=== PATIENT | female | born 1995 | race Caucasian/White ===

== ENCOUNTER 2017-10-21 22:18 | Emergency (ER) | payer OTHER ==
--- NOTE | 2017-10-21 22:33 | EDM.PDOC ---
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 She is able to rise out of a seated position she was able to remove her coat on her own without any significant pain behavior she does move slowly and deliberately however is not appeared to be in a great amount of distress. On exam straight leg raise to 90 does not produce any radiculopathy or increased pain however letting her legs down to the bed did increase some discomfort but not to a significant level I can reproduce pain with palpation of her paraspinous muscles right greater than left in the lumbar region she did have some vertebral point tenderness per patient however x-rays are normal No footdrop or saddle anesthesia bowel or urine symptoms There is some language barrier but the patient does understand Frisian and can communicate her [id number]'s present and also serves as an measurer or clarification as needed ] Review of systems: As per history of present illness and below otherwise all systems reviewed and negative. Past medical history: As per history of present illness and as reviewed below otherwise noncontributory. Surgical history: As per history of present illness and as reviewed below otherwise noncontributory. Social history: No reported history of drug or alcohol abuse. Family history: As per history of present illness and as reviewed below otherwise noncontributory. Physical exam: HEENT: Atraumatic, normocephalic, pupils reactive, negative for conjunctival pallor or scleral icterus, mucous membranes moist, throat clear, neck supple, nontender, trachea midline. Lungs: Clear to auscultation, breath sounds equal bilaterally, chest nontender. Heart: S1S2, regular, negative for clicks, rubs, or JVD. Abdomen: Soft, nondistended, nontender. Negative for masses or hepatosplenomegaly. Negative for costovertebral tenderness. Pelvis: Stable nontender. Genitourinary: Deferred. Rectal: Deferred. Extremities: Atraumatic, negative for cords or calf pain. Neurovascular unremarkable. Neuro: Awake, alert, oriented. Cranial nerves II through XII unremarkable. Cerebellum unremarkable. Motor and sensory unremarkable throughout. Exam nonfocal. Diagnostics: []UA HCG Lumbar spine Therapeutics: []Toradol 60 IM Cataflam Flexeril Impression: [Paraspinous muscle spasm lumbar region] Definitive disposition and diagnosis as appropriate pending reevaluation and review of above. lower back pain Pain Score (Numeric/FACES): 10 - Related Data Allergies Allergy/AdvReac Type Severity Reaction Status Date / Time No Known Allergies Allergy Verified 10/21/17 22:27 Home Meds: Home Meds . [No Known Home Meds] 10/21/17 [History] ED ROS GENERAL - Review of Systems Review Of Systems: ROS reveals no pertinent complaints other than HPI. ED EXAM, GENERAL - Physical Exam Exam: See Below Course - Vital Signs Last Recorded V/S: Last Vital Signs Temp 98.3 F 10/21/17 22:28 Pulse 86 10/21/17 22:28 Resp 18 10/21/17 22:28 BP 125/85 10/21/17 22:28 Pulse Ox 98 10/21/17 22:28 - Orders/Labs/Meds Orders: Active Orders 24 hr Category Date Time Status Lumbar Spine 2 or 3V [CR] Stat Exams 10/21/17 22:40 Taken Labs: Laboratory Tests 10/21/17 10/21/17 Range/Units 22:39 22:39 Urine Color YELLOW Urine Appearance HAZY Urine pH 6.0 (5.0-8.0) Ur Specific [place] 1.025 (1.001-1.035) Urine Protein NEGATIVE (NEGATIVE) mg/dL Urine Glucose (UA) NEGATIVE (NEGATIVE) mg/dL Urine Ketones NEGATIVE (NEGATIVE) mg/dL Urine Occult Blood LARGE H (NEGATIVE) Urine Nitrite NEGATIVE (NEGATIVE) Urine Bilirubin NEGATIVE (NEGATIVE) Urine Urobilinogen 0.2 (<2.0) EU/dL Ur Leukocyte Esterase NEGATIVE (NEGATIVE) Urine RBC 0-4 (0-2/HPF) Urine WBC 0-3 (0-5/HPF) Ur Epithelial Cells FEW (NONE-FEW) Urine Bacteria FEW (NEGATIVE) Urine Mucus LIGHT (NONE-MOD) Urine HCG, Qual NEGATIVE (NEGATIVE) Meds: Medications Discontinued Medications Generic Name Dose Route Start Last Admin Trade Name Freq PRN Reason Stop Dose Admin Ketorolac Tromethamine 60 mg 10/21/17 22:53 10/21/17 23:22 Toradol IM 10/21/17 22:54 60 mg ONETIME ONE Administration Departure - Departure Time of Disposition: 23:40 Disposition: Home, Self-Care 01 Condition: Good Clinical Impression: Spasm of lumbar paraspinous muscle - Discharge Information Referrals: PCP,None [Primary Care Provider] - Forms: ED Department Discharge Additional Instructions: Medication as prescribed Return if symptoms persist or worsen Follow-up with primary care in 2 weeks sooner as needed [facility] [address] [place] [id number] The following information is given to patients seen in the emergency department who are being discharged to home. This information is to outline your options for follow-up care. We provide all patients seen in our emergency department with a follow-up referral. The need for follow-up, as well as the timing and circumstances, are variable depending upon the specifics of your emergency department visit. If you don't have a primary care physician on staff, we will provide you with a referral. We always advise you to contact your personal physician following an emergency department visit to inform them of the circumstance of the visit and for follow-up with them and/or the need for any referrals to a consulting specialist. The emergency department will also refer you to a specialist when appropriate. This referral assures that you have the opportunity for follow-up care with a specialist. All of these measure are taken in an effort to provide you with optimal care, which includes your follow-up. Under all circumstances we always encourage you to contact your private physician who remains a resource for coordinating your care. When calling for follow-up care, please make the office aware that this follow-up is from your recent emergency room visit. If for any reason you are refused follow-up, please contact the [facility] emergency department at and asked to speak to the emergency department charge nurse. - My Orders Last 24 Hours: My Active Orders 10/21/17 22:40 Lumbar Spine 2 or 3V [CR] Stat - Assessment/Plan Last 24 Hours: My Active Orders 10/21/17 22:40 Lumbar Spine 2 or 3V [CR] Stat
[2017-10-21] MEDS ORDERED: Ketorolac 60 MG/2 ML SDV IM ONE (22:53)
--- NOTE | 2017-10-25 13:22 | CR ---
EXAM DATE: 10/21/17 PATIENT'S AGE: 22 Patient: AAYUSH HYATT Facility: [place], [place] Site . Site : 1995 Study: XRay Spine Lumbar [id number]/2017 11:24:52 PM Ordering Physician: Leonard Sim Final Report: INDICATION: back pain after lifting heavy object TECHNIQUE: Lumbar spine 3 view COMPARISON: None FINDINGS: Bones: No fractures or significant bone lesions. Joints: Disc spaces and facets are unremarkable. Soft tissues: Unremarkable. IMPRESSION: No acute abnormality of the lumbar spine. Dictated by Jared Tsang MD @ 10/21/2017 11:27:43 PM Dictated by: Jared Tsang MD @ 10/21/2017 23:27:51 (Electronic Signature) Report Signed by Proxy. [facility] HOSPITALWilbur
== END 2017-10-22 00:08 | disposition home or self-care (01) ==
LOC: MW.ED 22:18
DX: M62.830 Muscle spasm of back (principal)
CPT/HCPCS: 72100; 81001; 81025; 96372; 99283; J1885; 99282

== ENCOUNTER 2018-01-09 12:48 | Emergency (ER) | payer SELFPAY ==
--- NOTE | 2018-01-09 13:07 | EDM.PDOC ---
ED HPI GENERAL MEDICAL PROBLEM - General Chief Complaint: Respiratory Problem Stated Complaint: COUGH Time Seen by Provider: 01/09/18 12:51 Source of Information: Reports: Patient History Limitations: Reports: No Limitations - History of Present Illness INITIAL COMMENTS - FREE TEXT/NARRATIVE: HISTORY AND PHYSICAL: History of present illness: Patient is a 22-year-old female who presents to the emergency room with complaints of bilateral ear pain, sore throat, cough and chest congestion 3 days. She states she is coughing so hard that it hurts her chest and throat. Denies any fever, chills, chest pain, shortness of breath, abdominal pain, nausea, vomiting or diarrhea/constipation. States she has been using over-the- counter Tylenol without any relief. Review of systems: As per history of present illness and below otherwise all systems reviewed and negative. Past medical history: As per history of present illness and as reviewed below otherwise noncontributory. Surgical history: As per history of present illness and as reviewed below otherwise noncontributory. Social history: No reported history of drug or alcohol abuse. Family history: As per history of present illness and as reviewed below otherwise noncontributory. Physical exam: General: Well-developed and well-nourished 22-year-old female. Alert and oriented. Nontoxic appearing and in no acute distress. HEENT: Atraumatic, normocephalic, pupils reactive, negative for conjunctival pallor or scleral icterus, mucous membranes moist, pinkish tympanic membranes bilaterally with good light reflex, no bulging. Mild erythema noted to posterior oropharynx without exudate otherwise throat clear, neck supple, nontender, trachea midline. Lungs: Fine inspiratory wheezing to right posterior base otherwise clear, breath sounds equal bilaterally, chest nontender. Heart: S1S2, regular rate and rhythm Abdomen: Soft, nondistended, nontender. Negative for masses or hepatosplenomegaly. Negative for costovertebral tenderness. Pelvis: Stable nontender. Genitourinary: Deferred. Rectal: Deferred. Extremities: Atraumatic, negative for cords or calf pain. Neurovascular unremarkable. Neuro: Awake, alert, oriented. Cranial nerves II through XII unremarkable. Cerebellum unremarkable. Motor and sensory unremarkable throughout. Exam nonfocal. Influenza screening is negative. Chest x-ray shows no pneumonia or infiltrate. We'll treat the ear infection and erythematous throat with Augmentin. Will treat cough with Medrol Dosepak and Phenergan with codeine, 4 ounces no refill. Supportive care measures were reviewed. She voices understanding and is agreeable to plan of care. She denies any questions at this time. Diagnostics: Influenza, chest x-ray Therapeutics: [] Impression: Otitis media, bilateral Bronchitis Plan: 1. Please take the antibiotic as directed. A steroid has been prescribed to help open up your airways. Phenergan with codeine has been given for your cough and pain. The Phenergan with codeine is considered a narcotic and may make you drowsy so do not take it on driving or needing to be functioning outside of the house. Please reserve this medication for nighttime use. You may use Tylenol and /or ibuprofen as needed for daytime use. 2. Warm saltwater gargles 2-3 times per day for the next several days. Please continue toothbrush after antibiotic is completed. 3. Encourage fluids to prevent dehydration. 4. Follow-up with your primary caregiver in the next 1-2 days. Return to the ED as needed and as discussed. Definitive disposition and diagnosis as appropriate pending reevaluation and review of above. Onset Date: 01/06/18 Duration: Day(s): Location: Reports: Head, Neck, Chest throat Pain Score (Numeric/FACES): 9 - Related Data Allergies Allergy/AdvReac Type Severity Reaction Status Date / Time No Known Allergies Allergy Verified 01/09/18 12:55 Home Meds: Home Meds . [No Known Home Meds] 10/21/17 [History] Past Medical History HEENT History: Reports: None Cardiovascular History: Reports: None Respiratory History: Reports: None Gastrointestinal History: Reports: None Genitourinary History: Reports: None FITNESS SUPERVISOR History: Reports: None Musculoskeletal History: Reports: None Neurological History: Reports: None Psychiatric History: Reports: None Endocrine/Metabolic History: Reports: None Hematologic History: Reports: None Immunologic History: Reports: None Oncologic (Cancer) History: Reports: None Dermatologic History: Reports: None - Infectious Disease History Infectious Disease History: Reports: Chicken Pox, Other (See Below) Other Infectious Disease History: childhood - Past Surgical History Head Surgeries/Procedures: Reports: None HEENT Surgical History: Reports: None Cardiovascular Surgical History: Reports: None GI Surgical History: Reports: None Female Surgical History: Reports: None Endocrine Surgical History: Reports: None Musculoskeletal Surgical History: Reports: None Oncologic Surgical History: Reports: None Dermatological Surgical History: Reports: None Social & Family History - Family History Family Medical History: Noncontributory - Tobacco Use Smoking Status *Q: Never Smoker Second Hand Smoke Exposure: No - Caffeine Use Caffeine Use: Reports: None - Recreational Drug Use Recreational Drug Use: No ED ROS GENERAL - Review of Systems Review Of Systems: ROS reveals no pertinent complaints other than HPI. ED EXAM, GENERAL - Physical Exam Exam: See Below (See dictation) Course - Vital Signs Last Recorded V/S: Last Vital Signs Temp 96.8 F 01/09/18 12:55 Pulse 88 01/09/18 12:55 Resp 18 01/09/18 12:55 BP 164/84 H 01/09/18 12:55 Pulse Ox 97 01/09/18 12:55 Departure - Departure Time of Disposition: 13:31 Disposition: Home, Self-Care 01 Clinical Impression: Bronchitis Otitis media Qualifiers: Otitis media type: suppurative Chronicity: acute Laterality: bilateral Recurrence: not specified as recurrent Spontaneous tympanic membrane rupture: without spontaneous rupture Qualified Code(s): H66.003 - Acute suppurative otitis media without spontaneous rupture of ear drum, bilateral - Discharge Information Instructions: Otitis Media, Adult, [id number], Acute Bronchitis, Adult, Easy- to-Read Referrals: PCP,None [Primary Care Provider] - Forms: ED Department Discharge Additional Instructions: The following information is given to patients seen in the emergency department who are being discharged to home. This information is to outline your options for follow-up care. We provide all patients seen in our emergency department with a follow-up referral. The need for follow-up, as well as the timing and circumstances, are variable depending upon the specifics of your emergency department visit. If you don't have a primary care physician on staff, we will provide you with a referral. We always advise you to contact your personal physician following an emergency department visit to inform them of the circumstance of the visit and for follow-up with them and/or the need for any referrals to a consulting specialist. The emergency department will also refer you to a specialist when appropriate. This referral assures that you have the opportunity for follow-up care with a specialist. All of these measure are taken in an effort to provide you with optimal care, which includes your follow-up. Under all circumstances we always encourage you to contact your private physician who remains a resource for coordinating your care. When calling for follow-up care, please make the office aware that this follow-up is from your recent emergency room visit. If for any reason you are refused follow-up, please contact the [facility] Emergency Department at and asked to speak to the emergency department charge nurse. [facility] Primary [facility] [place] [id number] 1. Please take the antibiotic as directed. A steroid has been prescribed to help open up your airways. Phenergan with codeine has been given for your cough and pain. The Phenergan with codeine is considered a narcotic and may make you drowsy so do not take it on driving or needing to be functioning outside of the house. Please reserve this medication for nighttime use. You may use Tylenol and /or ibuprofen as needed for daytime use. 2. Warm saltwater gargles 2-3 times per day for the next several days. Please continue toothbrush after antibiotic is completed. 3. Encourage fluids to prevent dehydration. 4. Follow-up with your primary caregiver in the next 1-2 days. Return to the ED as needed and as discussed.
--- NOTE | 2018-01-09 13:41 | CR ---
EXAMINATION: Two-view chest (PA and Lateral views). HISTORY: Shortness of breath. FINDINGS: The trachea is midline. The cardiomediastinal silhouette is within normal limits. No pulmonary infilt rates, effusions or pneumothorax. Osseous structures appear unremarkable. IMPRESSION: No acute cardiopulmonary process.
== END 2018-01-09 13:50 | disposition home or self-care (01) ==
LOC: MW.ED 12:48
DX: J40 Bronchitis, not specified as acute or chronic (principal); H66.003 Acute suppurative otitis media without spontaneous rupture of ear drum, bilateral
CPT/HCPCS: 71046; 71046-26; 87804; 99283

== ENCOUNTER 2018-03-13 21:00 | Emergency (ER) | payer OTHER, MEDICAID ==
[2018-03-13] MEDS ORDERED: Silver Sulfadiazine 1% Crm 50 GM Tube TOP ONE (21:16)
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
[2018-03-13] MEDS ORDERED: Diphtheria,Pertussis(Acell),Tetanus Vaccine 0.5 ML Syringe IM ONE (21:17)
== END 2018-03-13 21:49 | disposition home or self-care (01) ==
LOC: MW.ED 21:00
DX: T21.21XA Burn of second degree of chest wall, initial encounter (principal); Z23 Encounter for immunization; X12.XXXA Contact with other hot fluids, initial encounter
CPT/HCPCS: 16020; 90471; 90715; 99283; A9270

== ENCOUNTER 2021-12-11 14:50 | Emergency (ER) | payer SELFPAY ==
[2021-12-11] MEDS ORDERED: Sodium Chloride 0.9% 10 ML Syringe FLUSH PRN (15:09)
[2021-12-11] MEDS ORDERED: Sodium Chloride 0.9% 2.5 ML Syringe FLUSH PRN (15:09)
[2021-12-11 16:11] LABS: BLOOD UREA NITROGEN,BUN 10 mg/dL (7.0-18.0); CARBON DIOXIDE,CO2 27.6 mmol/L (21.0-32.0); CHLORIDE,CL 102 mmol/L (98-107); GLUCOSE RANDOM 102 mg/dL (74-106); POTASSIUM,K 3.6 mmol/L (3.5-5.1); SODIUM,NA 137 mmol/L (136-145)
== END 2021-12-11 16:38 | disposition home or self-care (01) ==
LOC: MW.ED 14:50
DX: R07.2 Precordial pain (principal)
CPT/HCPCS: 36415; 71045; 71045-26; 80053; 84484; 85025; 93005; 99285-25